=== PATIENT | female | born 2000 | race Two or more races ===

== ENCOUNTER 2020-05-16 19:24 | Emergency (ER) | payer MEDICAID ==
[~2020-05-16] VITALS: Ht 162.6 cm; Wt 48.0 kg
[2020-05-16] MEDS ORDERED: IBUPROFEN 600MG TABLET PO STA (20:29)
[2020-05-16 22:43] VITALS: BP 124/87
== END 2020-05-16 22:43 | disposition home or self-care (01) ==
LOC: ER 19:24
DX: S39.012A Strain of muscle, fascia and tendon of lower back, initial encounter (principal); S00.83XA Contusion of other part of head, initial encounter; V49.59XA Passenger injured in collision with other motor vehicles in traffic accident, initial encounter; Y93.89 Activity, other specified; Y92.89 Other specified places as the place of occurrence of the external cause; Y99.8 Other external cause status
CPT/HCPCS: 72100; 81025; 99283